=== PATIENT | male | born 1985 | race Caucasian/White ===

== ENCOUNTER 2017-06-25 02:38 | Emergency (ER) | payer OTHER ==
[2017-06-25 03:10] VITALS: BP 130/93; PULSE 78; TEMP 98; BMI 27.5
--- NOTE | 2017-06-25 03:12 | PDOC ---
History of Present Illness - General History Source: Patient <Gregorio Hurley - Last Filed: 06/25/17 04:12> - General History Source: Patient - History of Present Illness Initial Comments: 06/25/17 03:26 The patient is a 32 year old male, with no significant past medical history, who presents to the emergency department with several months of rectal bleeding and new onset of abdominal distension. The patient states he is originally from [facility] where he was seen by a GI specialist, given a stool softener to help pass stool, however, the patient reports continued bright red blood with passing stool despite use of the softener. The patient states he also feels his abdomen is distended and is concerned because of extensive family history of pancreatic cancer. He denies chest pain, shortness of breath, headache and dizziness. He denies fever, chills, nausea, vomit, diarrhea and constipation. He denies dysuria, frequency, urgency and hematuria. Allergies: NKDA Social history: social ETOH use Family Hx: Pancreatic cancer <Sulma Villegas - Last Filed: 06/25/17 04:16> - General Chief Complaint: Rectal Bleed Stated Complaint: RECTAL BLEEDING Time Seen by Provider: 06/25/17 02:59 Past History - Suicide/Smoking/Psychosocial Hx Smoking Status: Yes Smoking History: Never smoked Have you smoked in the past 12 months: No Number of Cigarettes Smoked Daily: 10 Information on smoking cessation initiated: No Hx Alcohol Use: No Drug/Substance Use Hx: No Substance Use Type: None <Gregorio Hurley - Last Filed: 06/25/17 04:12> <Sulma Villegas - Last Filed: 06/25/17 04:16> - Past Medical History Allergies/Adverse Reactions: Allergies Allergy/AdvReac Type Severity Reaction Status Date / Time No Known Allergies Allergy Verified 06/25/17 02:57 Home Medications: Ambulatory Orders No Home Medications 0 dose .ROUTE UTDICT 02/24/13 Review of Systems - Review of Systems Able to Perform ROS?: Yes Comments:: 06/25/17 03:26 CONSTITUTIONAL: Absent: fever, chills, diaphoresis, generalized weakness, malaise, loss of appetite HEENT: Absent: rhinorrhea, nasal congestion, throat pain, throat swelling, difficulty swallowing, mouth swelling, ear pain, eye pain, visual Changes CARDIOVASCULAR: Absent: chest pain, syncope, palpitations, irregular heart rate, lightheadedness , peripheral edema RESPIRATORY: Absent: cough, shortness of breath, dyspnea with exertion, orthopnea, wheezing, stridor, hemoptysis GASTROINTESTINAL: (+) hematochezia for several months with new onset abdominal distension. Absent : abdominal pain, abdominal distension, nausea, vomiting, diarrhea, constipation , melena, GENITOURINARY: Absent: dysuria, frequency, urgency, hesitancy, hematuria, flank pain, genital pain MUSCULOSKELETAL: Absent: myalgia, arthralgia, joint swelling SKIN: Absent: rash, itching, pallor HEMATOLOGIC/IMMUNOLOGIC: Absent: easy bleeding, easy bruising, lymphadenopathy, frequent infections ENDOCRINE: Absent: unexplained weight gain, unexplained weight loss, heat intolerance, cold intolerance NEUROLOGIC: Absent: headache, focal weakness or paresthesias, dizziness, unsteady gait, seizure, mental status changes, bladder or bowel incontinence PSYCHIATRIC: Absent: anxiety, depression, suicidal or homicidal ideation, hallucinations. <Sulma Villegas - Last Filed: 06/25/17 04:16> *Physical Exam - Vital Signs Last Vital Signs Temp Pulse Resp BP Pulse Ox 98.0 F 78 14 130/93 99 06/25/17 02:58 06/25/17 02:58 06/25/17 02:58 06/25/17 02:58 06/25/17 02:58 <Gregorio Hurley - Last Filed: 06/25/17 04:12> - Vital Signs Last Vital Signs Temp Pulse Resp BP Pulse Ox 98.0 F 78 14 130/93 99 06/25/17 02:58 06/25/17 02:58 06/25/17 02:58 06/25/17 02:58 06/25/17 02:58 - Physical Exam Comments: 06/25/17 03:27 GENERAL: Well developed, well nourished. Awake and alert. No acute distress. HEENT: Normocephalic, atraumatic. PERRLA, EOMI. No conjunctival pallor. Sclera are non- icteric. Moist mucous membranes. Oropharynx is clear. NECK: Supple. Full ROM. No JVD. Carotid pulses 2+ and symmetric, without bruits. No thyromegaly. No lymphadenopathy. CARDIOVASCULAR: Regular rate and rhythm. No murmurs, rubs, or gallops. Distal pulses are 2+ and symmetric. PULMONARY: No evidence of respiratory distress. Lungs clear to auscultation bilaterally. No wheezing, rales or rhonchi. ABDOMINAL: Soft. Non-tender. Non-distended. No rebound or guarding. No organomegaly. Normoactive bowel sounds. MUSCULOSKELETAL Normal range of motion at all joints. No bony deformities or tenderness. No CVA tenderness. EXTREMITIES: No cyanosis. No clubbing. No edema. No calf tenderness. SKIN: Warm and dry. Normal capillary refill. No rashes. No jaundice. NEUROLOGICAL: Alert, awake, appropriate. Cranial nerves 2-12 intact. Normoreflexic in the upper and lower extremities. Normal speech. Toes are down-going bilaterally. Gait is normal without ataxia. PSYCHIATRIC: Cooperative. Good eye contact. Appropriate mood and affect. RECTAL: Negative for stool in the vault. No hemorrhoids. Good tone. <Sulma Villegas - Last Filed: 06/25/17 04:16> ED Treatment Course - LABORATORY CBC & Chemistry Diagram: 06/25/17 03:18 06/25/17 03:18 <Gregorio Hurley - Last Filed: 06/25/17 04:12> - LABORATORY CBC & Chemistry Diagram: 06/25/17 03:18 06/25/17 03:18 - RADIOLOGY Radiograph Interpretation: DATE OF SERVICE: 2017-06-25 03:15:56 IMAGES: 505 EXAM: CT ABDOMEN AND PELVIS WITHOUT CONTRAST No nephrolithiasis, ureterolithiasis or obstructive uropathy. No bladder calculi. Unremarkable pancreas and gallbladder. No bowel obstruction, colitis, diverticulitis, free fluid or free air. Normal appendix. 06/25/2017 04:09 EST Megan Naranjo MD <Sulma Villegas - Last Filed: 06/25/17 04:16> *DC/Admit/Observation/Transfer - Discharge Dispostion Admit: No <Gregorio Hurley - Last Filed: 06/25/17 04:12> - Attestations Scribe Attestion: 06/25/17 03:28 Documentation prepared by Sulma Villegas, acting as medical anthropologist for Gregorio Hurley DO <Sulma Villegas - Last Filed: 06/25/17 04:16> Diagnosis at time of Disposition: Rectal bleeding - Discharge Dispostion Disposition: HOME Condition at time of disposition: Stable - Referrals Referrals: Honorio Bravo MD [Staff Physician] - - Patient Instructions Printed Discharge Instructions: DI for Rectal Bleeding Additional Instructions: Please make appointment for colonscopy with GI as soon as possible. Drink plenty of fluids and avoid constipation.
[2017-06-25 03:26] LABS: BASO % 0.4 % (0-2.0); EOS % 2.6 % (0-4.5); HEMATOCRIT 43.9 % (35.4-49); HEMOGLOBIN 14.7 GM/dL (11.7-16.9); LYMPH % 40.4 % (8-40); MCH 29.7 pg (25.7-33.7); MCHC 33.5 g/dl (32.0-35.9); MEAN CELL VOLUME 88.5 fl (80-96); MEAN PLT VOLUME 7.4 fl (7.5-11.1); MONO % 8.1 % (3.8-10.2); NEUT % 48.5 % (42.8-82.8); PLATELET COUNT 260 K/MM3 (134-434); RBC 4.96 M/mm3 (4.00-5.60); RDW 13.6 % (11.9-15.9); WHITE BLOOD COUNT 7.1 K/mm3 (4.0-10.0)
[2017-06-25 03:41] LABS: INR 0.98 (0.82-1.09); PROTHROMBIN TIME (PATIENT) 11.1 SEC (9.98-11.88)
[2017-06-25 03:54] LABS: ALK PHOS 107 U/L (45-117); ANION GAP 10 (8-16); BILIRUBIN,TOTAL 0.5 mg/dL (0.2-1.0); BLOOD UREA NITROGEN 21 mg/dL (7-18); CALCIUM 9.1 mg/dL (8.5-10.1); CHLORIDE 104 mmol/L (98-107); CO2 24 mmol/L (21-32); GLUCOSE,RANDOM 102 mg/dL (74-106); LIPASE 118 U/L (73-393); SGOT/AST 27 U/L (15-37); SGPT/ALT 38 U/L (12-78); SODIUM 138 mmol/L (136-145); TOT PROT 8.1 g/dl (6.4-8.2)
== END 2017-06-25 04:23 | disposition home or self-care (01) ==
LOC: JER 02:38
DX: K62.5 Hemorrhage of anus and rectum (principal)
CPT/HCPCS: 36415; 74176-TC; 80053; 83690; 83735; 85025; 85610; 86850; 86900; 86901; 99283-25